=== PATIENT | male | born 2000 | race African-American/Black ===

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

== ENCOUNTER 2019-04-26 19:17 | Emergency (ER) | payer OTHER ==
[~2019-04-26] VITALS: Ht 182.9 cm; Wt 90.7 kg
[~2019-04-26 19:17] MED LIST changes: +ADDERALL 15 MG15 MG PO; +NORCO 5-325 TA1 EACH PO
[2019-04-26] MEDS ORDERED: LYRICA150 MG PO (20:35)
[2019-04-26 20:40] VITALS: BP 133/84
== END 2019-04-26 20:41 | disposition home or self-care (01) ==
LOC: ER 19:17
DX: S81.812D Laceration without foreign body, left lower leg, subsequent encounter (principal); F90.9 Attention-deficit hyperactivity disorder, unspecified type; F31.9 Bipolar disorder, unspecified; W34.09XD Accidental discharge from other specified firearms, subsequent encounter

== ENCOUNTER 2020-12-30 19:20 | Emergency (ER) | payer OTHER ==
[~2020-12-30] VITALS: Ht 182.9 cm; Wt 108.0 kg
[~2020-12-30 19:20] MED LIST changes: +LYRICA150 MG PO
[2020-12-30 19:37] VITALS: BP 155/90
== END 2020-12-30 20:00 | disposition home or self-care (01) ==
LOC: ER 19:20
DX: Z45.2 Encounter for adjustment and management of vascular access device (principal); F90.9 Attention-deficit hyperactivity disorder, unspecified type; F31.9 Bipolar disorder, unspecified; Z98.890 Other specified postprocedural states; Z79.899 Other long term (current) drug therapy; Z89.512 Acquired absence of left leg below knee

== ENCOUNTER 2021-02-19 19:35 | Emergency (ER) | payer OTHER ==
[~2021-02-19] VITALS: Ht 188 cm; Wt 112.9 kg
[2021-02-19] MEDS ORDERED: ACETAMINOPHEN325 M1 PO (19:54)
[2021-02-19] MEDS ORDERED: ASA81BEC PO (19:54)
[2021-02-19] MEDS ORDERED: FLONASE 0.05%50 MCG NASAL (19:55)
[2021-02-19 20:04] LABS: ABSOLUTE NEUTROPHILS 6.1 thou/uL (1.4-8.2); BASOPHILS 0.6 % (0.0-2.0); EOSINOPHILS 2.2 % (0.0-3.0); HEMATOCRIT 40.1 % (42.0-52.0); HEMOGLOBIN 13.6 gm/dL (14.0-18.0); LYMPHOCYTES 21.8 % (24.0-44.0); MCH 29.1 pg (26.0-34.0); MCHC 33.9 g/dL (28.0-37.0); MONOCYTES 6.1 % (1.0-8.0); PLATELET COUNT 340 thou/uL (150-400); POLYS 69.3 % (36.0-66.0); RBC 4.66 mil/uL (4.50-6.00); RDW 15.4 % (10.5-14.5); WBC 8.8 thou/uL (4.0-11.0)
[2021-02-19 20:05] LABS: URINE BILIRUBIN NEGATIVE (Negative); URINE BLOOD TRACE (Negative); URINE CLARITY CLEAR; URINE COLOR YELLOW; URINE GLUCOSE-RANDOM* NEGATIVE (Negative); URINE KETONES NEGATIVE (Negative); URINE LEUKOCYTES-REFLEX NEGATIVE (Negative); URINE NITRITE-REFLEX NEGATIVE (Negative); URINE PROTEIN (DIPSTICK) NEGATIVE (Negative); URINE UROBILINOGEN 0.2 E.U./dl (0.2-1.0)
[2021-02-19 20:09] LABS: ANION GAP 12 mmol/L (7-16); BUN 16 mg/dL (7-18); CALCIUM 9.3 mg/dL (8.5-10.1); CHLORIDE 106 mmol/L (98-107); CO2 24 mmol/L (21-32); CREATININE 1.5 mg/dL (0.7-1.3); GLUCOSE 178 mg/dL (74-106); POTASSIUM 3.8 mmol/L (3.5-5.1); SODIUM 142 mmol/L (136-145)
[2021-02-19 20:14] LABS: ALBUMIN 3.7 g/dL (3.4-5.0); AMP/METHAMP POSITIVE (Negative); BARBITURATES Negative (Negative); BENZODIAZEPINES POSITIVE (Negative); COCAINE Negative (Negative); DIRECT BILIRUBIN < 0.1 mg/dL (<0.1-0.2); METHADONE Negative (Negative); OPIATES Negative (Negative); PCP Negative (Negative); SALICYLATE 4.2 mg/dL (2.8-20.0); SGOT 23 U/L (15-37); SGPT 29 U/L (16-63); TOTAL BILIRUBIN 0.2 mg/dL (0.2-1.0)
[2021-02-20 03:56] VITALS: BP 123/87
== END 2021-02-20 03:57 | disposition home or self-care (01) ==
LOC: ER 19:35
PROVIDERS: Emergency Medicine
DX: F43.24 Adjustment disorder with disturbance of conduct (principal); F15.10 Other stimulant abuse, uncomplicated; F12.10 Cannabis abuse, uncomplicated; F31.9 Bipolar disorder, unspecified; Z98.890 Other specified postprocedural states; Z79.891 Long term (current) use of opiate analgesic; Z79.899 Other long term (current) drug therapy; Z79.82 Long term (current) use of aspirin